=== PATIENT | female | born 1995 | race Caucasian/White ===

== ENCOUNTER 2019-01-17 05:39 | Inpatient (IN) | payer OTHER ==
[2019-01-17] MEDS ORDERED: morphine SULFATE/PF (10 MG/10 ML) INJ (07:35)
[2019-01-17] MEDS ORDERED: LIDOCAINE 1% (MDV) 20 ML INJ (07:35)
[2019-01-17] MEDS ORDERED: FENTAnyl 50 MCG/ML VIAL ×2 (07:35→07:50)
[2019-01-17] MEDS ORDERED: ROCURONIUM 50 MG INJ (07:35)
[2019-01-17] MEDS ORDERED: PROPOFOL 20 ML (07:35)
[2019-01-17] MEDS ORDERED: MIDAZOLAM 1 MG/ML 2 ML INJ (07:36)
[2019-01-17] MEDS ORDERED: CEFAZOLIN 1 GM INJ (07:54)
[2019-01-17] MEDS ORDERED: DEXAMETHASONE 4 MG/ML 5 ML INJ (07:56)
[2019-01-17] MEDS ORDERED: ONDANSETRON 4 MG INJ (07:56)
[2019-01-17] MEDS ORDERED: HYDROmorphONE 1 MG/5 ML IV SYRINGE IV ×3 (08:00)
[2019-01-17] MEDS: LACTATED RINGER'S 1,000 ML IV ×3 (08:30→20:39)
[2019-01-17] MEDS ORDERED: CEFAZOLIN 2 GM/50 ML (PMX) 50 ML IVPB (08:30)
[2019-01-17] MEDS ORDERED: ROPIVACAINE 0.5 % 30 ML VIAL (08:47)
[2019-01-17] MEDS ORDERED: ROPIVACAINE 0.2% 20 ML VIAL (08:56)
[2019-01-17] MEDS ORDERED: SUGAMMADEX SODIUM 200 MG/2 ML VIAL IV (08:59)
[2019-01-17] MEDS ORDERED: ONDANSETRON 4 MG INJ IV (09:30)
[2019-01-17] MEDS ORDERED: KETOROLAC 30 MG INJ IV (09:30)
[2019-01-17] MEDS ORDERED: METOCLOPRAMIDE 10 MG INJ IV (09:30)
[2019-01-17] MEDS: HYDROCODONE/APAP (5/325) TAB PO ×2 (19:34→23:39)
[2019-01-17] MEDS: morphine 2 MG INJ IV (22:45)
[2019-01-18 05:05] LABS: ADD MAN DIFF? NO
[2019-01-18 05:08] LABS: WHITE BLOOD COUNT 9.4 10^3/ul (4.8-10.8)
[2019-01-18 05:08] LABS: BASOPHILS % 0.1 % (0.0-2.0); EOSINOPHILS % 0.2 % (0.0-7.0); HEMOGLOBIN 11.9 g/dl (12.0-16.0); LYMPHOCYTES # 1.4 10^3/ul (0.8-2.9); LYMPHOCYTES % 15.3 % (15.0-51.0); MEAN CORPUSCULAR HEMOGLOBIN 29.5 pg (29.0-33.0); MEAN CORPUSCULAR HGB CONC 33.1 g/dl (32.0-37.0); MEAN CORPUSCULAR VOLUME 89.1 fl (82.0-101.0); MEAN PLATELET VOLUME 11.6 fl (7.4-10.4); MONOCYTE # 0.5 10^3/ul (0.3-0.9); MONOCYTES % 5.5 % (0.0-11.0); NEUTROPHIL # 7.4 10^3/ul (1.6-7.5); NEUTROPHILS % 78.6 % (39.0-77.0); PLATELET COUNT 244 10^3/UL (140-415); RED BLOOD COUNT 4.04 10^6/ul (4.20-5.40); RED CELL DISTRIBUTION WIDTH 13.1 % (11.5-14.5)
[2019-01-18] MEDS: HYDROCODONE/APAP (5/325) TAB PO ×2 (08:53→15:28)
== END 2019-01-18 19:15 | disposition home or self-care (01) | DRG 743 ==
LOC: REC 05:39 → MS1 10:49
PROVIDERS: Specialist
PROC: 0UB00ZZ Excision of Right Ovary, Open Approach (ICD-10-PCS; principal; 2019-01-17 07:30)
DX: D27.0 Benign neoplasm of right ovary (principal); E28.2 Polycystic ovarian syndrome
CPT/HCPCS: 85025; 87086; 88307